=== PATIENT | female | born 1940 | race Caucasian/White ===

== ENCOUNTER 2016-10-05 08:27 | Outpatient (CLI) | payer MEDICARE ==
[2016-10-05 10:12] LABS: ALT (SGPT) 15 U/L (8-55); AST (SGOT) 20 U/L (5-34); Albumin 4.7 g/dL (3.4-4.8); Alkaline Phosphatase 45 U/L (40-150); Anion Gap 15 mmol/L (10-20); BUN (Urea Nitrogen) 15 mg/dL (9.8-20.1); Bilirubin, Total 0.5 mg/dL (0.2-1.2); Calc. Creatinine Clearance 0 mL/min (70-130); Calcium 10.1 mg/dL (7.8-10.44); Carbon Dioxide 26 mmol/L (23-31); Cardiac Risk 3.3 (Less than 4.5); Chloride 99 mmol/L (98-107); Cholesterol 192 mg/dl (< 200 Desired); Estimated GFR-MDRD 79; Globulin 2.7 g/dL (2.4-3.5); Glucose 113 mg/dL (83-110); HDL Cholesterol 58 mg/dL (>60 Neg Risk); LDL Cholesterol, Calculated 103 mg/dL; Potassium 3.9 mmol/L (3.5-5.1); Protein, Total 7.4 g/dL (6.0-8.3); Sodium 136 mmol/L (136-145); Triglycerides 155 mg/dL (Less than 150)
[2016-10-05 10:26] LABS: Free T4 (Free Thyroxine) 1.1 ng/dL (0.70-1.48); Thyroid Stimulating Hormone 2.3425 uIU/mL (0.35-4.94)
[2016-10-05 10:34] LABS: Hemoglobin A1c 6.6 % (4.0-6.0)
[2016-10-05 11:30] LABS: #Basophils 0.1 thou/uL (0.0-0.2); #Eosinphils 0.2 thou/uL (0.0-0.7); #Lymphocytes 2.1 thou/uL (1.20-3.40); #Monocytes 0.6 thou/uL (0.11-0.59); #Neutrophils 3.5 thou/uL (1.40-6.50); %Basophils 1.1 % (0.0-1.0); %Eosinophils 3.6 % (0.0-10.0); %Lymphocytes 32.3 % (21.0-51.0); Hemoglobin 10.7 g/dL (12.0-16.0); Mean Corpuscular Volume 80.6 fl (81.0-99.0); Mean Platelet Volume 6.7 fL (7.4-10.4); PLT Morphology Comment Appears Adequate; Platelet Count 283 thou/uL (130-400); RBC Distribution Width 14.8 % (11.5-14.5); Red Blood Cell (RBC) Count 4.29 mill/uL (4.20-5.40); White Blood Cell (WBC) Count 6.6 thou/uL (4.8-10.8)
[2016-10-05 18:04] LABS: Ferritin 7.09 ng/mL (10-291)
== END 2016-10-05 08:28 ==
LOC: HPCALD 08:27
PROVIDERS: ATTEND Family Medicine
DX: E78.5 Hyperlipidemia, unspecified (principal); E11.9 Type 2 diabetes mellitus without complications; I10 Essential (primary) hypertension; D64.9 Anemia, unspecified; E03.9 Hypothyroidism, unspecified
CPT/HCPCS: 36415; 80053; 80061; 82728; 83036; 84439; 84443; 85025

== ENCOUNTER 2018-04-17 15:45 | Inpatient (IN) | payer MEDICARE ==
--- NOTE | 2018-04-17 17:17 | RAD ---
PELVIS ONE VIEW 04/17/18 A fracture is noted of the right inferior pubic ramus and also a second fracture where the right supe rior pubic ramus meets the body of the pubis. There is slight displacement here. The symphysis does n ot appear tremendously widened. The SI joints are symmetrical. While the bones are mildly osteo penic, what I see of the arcuate lines of the sacrum appear intact. Both hips appear intact. IMPRESSION: Fractures of the superior and inferior right pubic bone. POS: HOME
--- NOTE | 2018-04-17 17:18 | RAD ---
RIGHT HIP TWO VIEWS: 04/17/18 No fracture of the visible portions of the femur or femoral head were seen. One does see fractures of the right superior and inferior pubic rami. There is no dislocation of the hip. The hip joint space is normal in width. IMPRESSION: Right pubic rami fractures. See CT report to follow. POS: HOME
[2018-04-17 17:34] LABS: #Basophils 0.1 thou/uL (0.0-0.2); #Eosinphils 0.2 thou/uL (0.0-0.7); #Lymphocytes 1.9 thou/uL (1.20-3.40); #Monocytes 1.2 thou/uL (0.11-0.59); #Neutrophils 15.8 thou/uL (1.40-6.50); %Basophils 0.7 % (0.0-1.0); %Eosinophils 1.1 % (0.0-10.0); %Lymphocytes 10.1 % (21.0-51.0); %Monocytes 6.1 % (0.0-10.0); Hemoglobin 11.9 g/dL (12.0-16.0); Mean Corpuscular HGB CONC 32.7 g/dL (32.0-36.0); Mean Corpuscular Hemoglobin 26.9 pg (27.0-31.0); Mean Corpuscular Volume 82.1 fL (78.0-98.0); Mean Platelet Volume 6.8 fL (7.4-10.4); Platelet Count 279 thou/uL (130-400); RBC Distribution Width 12.9 % (11.5-14.5); Red Blood Cell (RBC) Count 4.42 mill/uL (4.20-5.40); White Blood Cell (WBC) Count 19.2 thou/uL (4.8-10.8)
--- NOTE | 2018-04-17 17:37 | CT ---
CT OF THE PELVIS WITHOUT CONTRAST 04/17/[address] of the pelvis was done without IV contrast following trauma. Axial slices were acquired, th en coronal and sagittal reconstructions were done. There are relatively undisplaced fractures of the right superior pubic ramus as it meets the body of the pubis and the right inferior pubic ramus. There is thickening of the right obturator internus mus deirdre but no song hematoma or free fluid was seen. In addition, there is a small fracture through the periphery of S2 on the right near the right SI joint. There is a small amount of soft tissue swelling around the fracture site but no gross hematoma of concern. Grade I spondylolisthesis of L5 on S1 is present due to facet changes. There is a degenerated disc at L5-S1. Concentric bulging of L4-L5 is present. IMPRESSION: 1. Fractures of the right superior and inferior pubic rami near the pubic body. Minimal displace ment. Some swelling in the nearby obturator internus but no large pelvic hematoma seen. 2. Small nondisplaced fracture of S2 peripherally near the right SI joint. Minor amounts of soft tissue swelling around it. 3. Hip joints intact with no sign of hip fracture. 4. Spondylolisthesis of L5 on S1 due to facet changes. Findings discussed with Dr. Cazares at 1702 on 04/17/18. POS: HOME
[2018-04-17 17:54] LABS: Anion Gap 20 mmol/L (10-20); BUN (Urea Nitrogen) 15 mg/dL (9.8-20.1); Calc. Creatinine Clearance 0 mL/min (70-130); Calcium 10.7 mg/dL (7.8-10.44); Carbon Dioxide 24 mmol/L (23-31); Chloride 98 mmol/L (98-107); Estimated GFR-MDRD 68; Glucose 164 mg/dL (83-110); Potassium 3.8 mmol/L (3.5-5.1); Sodium 138 mmol/L (136-145)
[2018-04-17 18:05] VITALS: BMI 21.7
[2018-04-17] MEDS ORDERED: HYDROcodone/Acetaminophen 5/325 mg Tablet PO PRN (18:48)
[2018-04-17] MEDS ORDERED: Ondansetron PF 4 MG/2 ML Vial IVP PRN (18:48)
[2018-04-17] MEDS ORDERED: Morphine 4 MG/ML VIAL SLOW IVP PRN (19:12)
[2018-04-17] MEDS: Acetaminophen 325 MG TAB PO PRN (20:55)
[2018-04-18] MEDS: Acetaminophen 325 MG TAB PO PRN ×2 (02:32→07:33)
[2018-04-18] MEDS: Ondansetron ODT 4 MG TAB SL PRN ×2 (08:11→16:46)
[2018-04-18] MEDS ORDERED: Loratadine 10 MG TAB PO PRN (09:28)
[2018-04-18] MEDS: HYDROcodone/Acetaminophen 5/325 mg Tablet PO PRN ×3 (09:32→23:10)
[2018-04-18] MEDS ORDERED: Meclizine HCl 25 MG TAB PO SCH (09:45)
[2018-04-18] MEDS ORDERED: Polyethylene Glycol 3350 17 GM Packet PO SCH ×2 (09:45→21:00)
[2018-04-18] MEDS ORDERED: Metoprolol Tartrate 25 MG TAB PO SCH (09:45)
[2018-04-18] MEDS ORDERED: Fish Oil 1,000 MG CAP PO SCH (09:45)
[2018-04-18] MEDS ORDERED: Hydrochlorothiazide 25 MG TAB PO SCH (09:45)
[2018-04-18] MEDS ORDERED: Aspirin 81 mg Enteric Coated Tablet PO SCH (09:45)
[2018-04-18] MEDS ORDERED: Non-Formulary Item 1 EACH (Fexofenadine Hcl [Allegra Allergy] 180 MG) PO PRN (11:39)
[2018-04-18] MEDS ORDERED: Meclizine HCl 25 MG TAB PO PRN (11:39)
[2018-04-18] MEDS ORDERED: Dextrose 5% in Water 1,000 ML IV PRN (11:41)
[2018-04-18] MEDS ORDERED: Dextrose 50% Abboject 50 ML SYRINGE SLOW IVP PRN (11:41)
[2018-04-18] MEDS ORDERED: Senokot 8.6 MG TAB PO PRN (11:43)
[2018-04-18] MEDS ORDERED: traMADol HCl 50 MG TAB PO PRN (12:04)
[2018-04-18] MEDS ORDERED: Ondansetron PF 4 MG/2 ML Vial SLOW IVP PRN (16:24)
[2018-04-18] MEDS: metFORMIN 500 MG TAB PO SCH (17:34)
[2018-04-18] MEDS: HumaLOG 300 UNITS/3 ML VIAL SC PRN (17:34)
[2018-04-18] MEDS ORDERED: metFORMIN 500 MG TAB PO SCH (21:00)
[2018-04-18] MEDS: Polyethylene Glycol 3350 17 GM Packet PO SCH (21:12)
[2018-04-18] MEDS: Enoxaparin Sodium 30 MG/0.3 ML SYRINGE SC SCH (21:13)
[2018-04-18] MEDS: Docusate 100 MG CAP PO SCH (21:13)
[2018-04-18] MEDS: Atorvastatin Calcium 40 MG TAB PO SCH (21:13)
[2018-04-18] MEDS: Fish Oil 1,000 MG CAP PO SCH (21:13)
[2018-04-18] MEDS: Famotidine 20 MG TAB PO SCH (21:13)
[2018-04-18] MEDS: Ondansetron ODT 4 MG TAB PO PRN (22:50)
[2018-04-19 05:30] LABS: #Basophils 0.1 thou/uL (0.0-0.2); #Eosinphils 0.4 thou/uL (0.0-0.7); #Lymphocytes 2.6 thou/uL (1.20-3.40); #Monocytes 1.1 thou/uL (0.11-0.59); #Neutrophils 7.1 thou/uL (1.40-6.50); %Basophils 0.9 % (0.0-1.0); %Eosinophils 3.5 % (0.0-10.0); %Lymphocytes 22.8 % (21.0-51.0); %Monocytes 10.1 % (0.0-10.0); %Neutrophils 62.8 % (42.0-75.0); Hemoglobin 10.2 g/dL (12.0-16.0); Mean Corpuscular HGB CONC 34.2 g/dL (32.0-36.0); Mean Corpuscular Hemoglobin 27.6 pg (27.0-31.0); Mean Corpuscular Volume 80.5 fL (78.0-98.0); Mean Platelet Volume 7.9 fL (7.4-10.4); Platelet Count 209 thou/uL (130-400); RBC Distribution Width 12.8 % (11.5-14.5); Red Blood Cell (RBC) Count 3.71 mill/uL (4.20-5.40); White Blood Cell (WBC) Count 11.3 thou/uL (4.8-10.8)
[2018-04-19 05:38] LABS: ALT (SGPT) 13 U/L (8-55); AST (SGOT) 18 U/L (5-34); Albumin 3.7 g/dL (3.4-4.8); Alkaline Phosphatase 41 U/L (40-150); Anion Gap 13 mmol/L (10-20); BUN (Urea Nitrogen) 9 mg/dL (9.8-20.1); Bilirubin, Total 0.3 mg/dL (0.2-1.2); Calc. Creatinine Clearance 70 mL/min (70-130); Calcium 9.2 mg/dL (7.8-10.44); Carbon Dioxide 25 mmol/L (23-31); Chloride 96 mmol/L (98-107); Estimated GFR-MDRD Greater than 90; Globulin 2.7 g/dL (2.4-3.5); Glucose 142 mg/dL (83-110); Protein, Total 6.4 g/dL (6.0-8.3); Sodium 130 mmol/L (136-145)
[2018-04-19] MEDS: Levothyroxine Sodium 25 MCG TAB PO SCH (06:00)
[2018-04-19] MEDS: Ondansetron ODT 4 MG TAB PO PRN (06:00)
[2018-04-19] MEDS: HYDROcodone/Acetaminophen 5/325 mg Tablet PO PRN (06:16)
[2018-04-19] MEDS: Polyethylene Glycol 3350 17 GM Packet PO SCH ×2 (08:15→20:23)
[2018-04-19] MEDS: HumaLOG 300 UNITS/3 ML VIAL SC PRN ×3 (08:16→17:21)
[2018-04-19] MEDS: metFORMIN 500 MG TAB PO SCH ×2 (08:20→17:21)
[2018-04-19] MEDS: Meclizine HCl 25 MG TAB PO SCH (08:20)
[2018-04-19] MEDS: Docusate 100 MG CAP PO SCH ×2 (08:20→20:23)
[2018-04-19] MEDS: Aspirin 81 mg Enteric Coated Tablet PO SCH (08:20)
[2018-04-19] MEDS: Famotidine 20 MG TAB PO SCH ×2 (08:21→20:22)
[2018-04-19] MEDS: Hydrochlorothiazide 25 MG TAB PO SCH (08:22)
[2018-04-19] MEDS ORDERED: PHOSPHO PO SCH (09:00)
[2018-04-19] MEDS ORDERED: Levothyroxine Sodium 25 MCG TAB PO SCH (09:00)
[2018-04-19] MEDS ORDERED: [UNRECOGNIZED DRUG - OTHER] PO SCH (09:00)
[2018-04-19] MEDS ORDERED: AST PO SCH (09:00)
[2018-04-19] MEDS ORDERED: KRILL PO SCH (09:00)
[2018-04-19] MEDS ORDERED: DHA PO SCH (09:00)
[2018-04-19] MEDS ORDERED: Non-Formulary Item 1 EACH (Hydrochlorothiazide [Hydrochlorothiazide] 12.5 MG) PO SCH (09:00)
[2018-04-19] MEDS ORDERED: Atorvastatin Calcium 40 MG TAB PO SCH (09:00)
[2018-04-19] MEDS ORDERED: Fish Oil 1,000 MG CAP PO SCH (09:00)
[2018-04-19] MEDS ORDERED: EPA PO SCH (09:00)
[2018-04-19] MEDS ORDERED: Metoprolol Tartrate 100 MG TAB PO SCH (09:00)
[2018-04-19] MEDS ORDERED: Aspirin 81 mg Enteric Coated Tablet PO SCH (09:00)
[2018-04-19] MEDS ORDERED: Metoprolol Tartrate 25 MG TAB PO SCH ×2 (09:00→09:30)
[2018-04-19] MEDS: Ondansetron ODT 4 MG TAB SL PRN ×2 (09:35→15:35)
--- NOTE | 2018-04-19 12:30 | HP ---
DATE OF ADMISSION: 04/18/2018 CHIEF COMPLAINT: Status post fall with pubic ramus fracture and S2 fracture. HISTORY OF PRESENT ILLNESS: A 77-year-old female presented to [facility] Emergency Department yesterday evening status post fall while walking out of [facility]; states the concrete was uneven, she lost her balance and fell towards her right side. She was unable to arise and had noted pain to the area of fall and was brought to the emergency department. Imaging revealed the patient to have right superior and inferior pubic rami fractures along with a nondisplaced fracture of S2. The patient typically lives alone and thus due to her inability to ambulate she was admitted so that she may have both further pain control in addition to working with physical therapy and occupational therapy to enable her to not only ambulate, but perform ADLs in her home setting. The patient reports her pain to be fairly stable at this time with no significant side effects of pain medication received. She has not yet had a bowel movement , but otherwise reports her intake and output to be at baseline. She has good insight into her reason for admission. PAST MEDICAL HISTORY: Gastroesophageal reflux disease, hypothyroidism, hyperlipidemia, asthma, arthritis, hypertension, type 2 diabetes mellitus. PAST SURGICAL HISTORY: Hysterectomy in 1980. Aortic valve replacement in 2014. SOCIAL HISTORY: The patient is a nonsmoker with no ETOH or illicit drug use. She lives at home by herself. ALLERGIES: Include FLUOROQUINOLONES, NSAIDs, NEURONTIN, SULFA, CODEINE, LISINOPRIL, LOSARTAN, TESSALON PERLES, and EGGS. FAMILY HISTORY: Noncontributory. CURRENT MEDICATIONS: Include aspirin 81 mg p.o. daily, metformin 500 mg p.o. b.i.d., levothyroxine 25 mcg p.o. daily, meclizine 25 mg daily as needed, metoprolol tartrate 100 mg p.o. daily, hydrochlorothiazide 12.5 mg p.o. daily, atorvastatin 40 mg p.o. at bedtime, Natasha 180 mg p.o. daily p.r.n. REVIEW OF SYSTEMS: General: The patient denies fever, chills or diaphoresis. Ear, Nose, and Throat: Denies sore throat, nasal drainage or congestion. Cardiovascular: Denies chest pain or palpitations. Respiratory: Denies shortness of breath or cough. Gastrointestinal: Denies abdominal pain, nausea , vomiting, diarrhea or constipation. Genitourinary: Denies dysuria. Musculoskeletal: Complaints of low back and right hip pain. Dermatologic: Denies rash. Neurologic: Denies headache. LABORATORY DATA: White blood cell count 19.2, H and H is 11.9 and 36.3. Chemistry: Sodium 138, potassium 3.8, BUN is 15, creatinine 0.81 with a GFR of 68, glucose 164. IMAGING: On 04/17/2018, pelvis x-ray shows fractures of the superior and inferior right pubic bone. On 04/17/2018, hip x-ray shows right pubic rami fractures. On 04/17/2018, pelvis CT shows fractures of the right superior and inferior pubic rami near the pubic body, minimal displacement, some swelling near obturator internus but no large pelvic hematoma seen. Small nondisplaced fracture of S2 peripherally near the right SI joint with minor amounts of soft tissue swelling around it. Hip joints intact with no sign of hip fracture, spondylolisthesis of L5 on S1 due to facet changes. PHYSICAL EXAMINATION: VITAL SIGNS: Temperature is 97.5, pulse is 80, respiratory rate is 18, oxygen is 98% on room air, blood pressure 175/79. GENERAL: The patient is alert and oriented, in no acute distress. EYES: Conjunctivae are clear. Sclerae are clear. Pupils equal, round, reactive to light. Extraocular muscles are intact bilaterally. HEENT: Within normal limits. NECK: Supple, with full range of motion. No lymphadenopathy. CARDIOVASCULAR: Regular rate and rhythm, normal S1, S2, 2/6 systolic murmur. RESPIRATORY: Clear to auscultation bilaterally with no wheezes, rales or rhonchi. ABDOMEN: Soft, nontender to palpation. EXTREMITIES: No clubbing, cyanosis or edema. MUSCULOSKELETAL: Osteoarthritic changes to the DIP joints of bilateral hands, crepitus to the knees, generalized weakness with inability to raise the right lower extremity in the supine position. NEUROLOGICAL: Exam is nonfocal with cranial nerves II-XII grossly intact. ASSESSMENT AND PLAN: 1. Right superior and inferior pubic rami fracture. We will provide the patient physical therapy and occupational therapy in order to improve mobilization, so that she may perform ADLs and return home. 2. Nondisplaced S2 fracture. We will provide the patient pain control medications along with p.r.n. constipation meds due to potential side effects. 3. Gait instability. The patient is currently immobile. We will work on this with PT and OT. 4. Hypertension. The patient is hemodynamically stable. We will resume her home blood pressure medications. 5. Type 2 diabetes mellitus. We will resume patient's home metformin and add a Humalog sliding scale. 6. Dyslipidemia. We will resume the patient's home statin. 7. Hypothyroidism. We will resume patient's levothyroxine. 8. Leukocytosis, likely reactive due to stress. We will repeat the patient's CBC tomorrow morning. 9. Prophylaxis. We will provide famotidine for gastrointestinal prophylaxis and Lovenox for deep venous thrombosis prophylaxis. DISPOSITION: Goal will be for the patient to return home once cleared by PT and OT. CODE STATUS: FULL. MTDD
[2018-04-19] MEDS: Fish Oil 1,000 MG CAP PO SCH (20:22)
[2018-04-19] MEDS: Enoxaparin Sodium 30 MG/0.3 ML SYRINGE SC SCH (20:22)
[2018-04-19] MEDS: Atorvastatin Calcium 40 MG TAB PO SCH (20:23)
[2018-04-19] MEDS: Metoprolol Tartrate 25 MG TAB PO SCH (20:24)
[2018-04-20] MEDS: Levothyroxine Sodium 25 MCG TAB PO SCH (05:38)
[2018-04-20] MEDS: Polyethylene Glycol 3350 17 GM Packet PO SCH ×2 (08:35→20:23)
[2018-04-20] MEDS: metFORMIN 500 MG TAB PO SCH ×2 (08:36→16:44)
[2018-04-20] MEDS: Docusate 100 MG CAP PO SCH ×2 (08:36→20:22)
[2018-04-20] MEDS: Metoprolol Tartrate 25 MG TAB PO SCH ×2 (08:37→20:24)
[2018-04-20] MEDS: Meclizine HCl 25 MG TAB PO SCH (08:37)
[2018-04-20] MEDS: Hydrochlorothiazide 25 MG TAB PO SCH (08:38)
[2018-04-20] MEDS: Famotidine 20 MG TAB PO SCH ×2 (08:38→20:25)
[2018-04-20] MEDS: Aspirin 81 mg Enteric Coated Tablet PO SCH (08:38)
[2018-04-20] MEDS: Acetaminophen 325 MG TAB PO PRN ×3 (13:56→23:58)
[2018-04-20] MEDS: HumaLOG 300 UNITS/3 ML VIAL SC PRN (16:44)
[2018-04-20] MEDS: Enoxaparin Sodium 30 MG/0.3 ML SYRINGE SC SCH (20:22)
[2018-04-20] MEDS: Fish Oil 1,000 MG CAP PO SCH (20:22)
[2018-04-20] MEDS: Atorvastatin Calcium 40 MG TAB PO SCH (20:23)
[2018-04-21] MEDS: Levothyroxine Sodium 25 MCG TAB PO SCH (05:24)
[2018-04-21 05:30] LABS: Hemoglobin 10.7 g/dL (12.0-16.0); Platelet Count 255 thou/uL (130-400)
[2018-04-21 06:09] VITALS: BP 128/67; TEMP 97.8
[2018-04-21] MEDS: metFORMIN 500 MG TAB PO SCH (08:57)
[2018-04-21] MEDS: Polyethylene Glycol 3350 17 GM Packet PO SCH (08:57)
[2018-04-21] MEDS: Metoprolol Tartrate 25 MG TAB PO SCH (08:57)
[2018-04-21] MEDS: Meclizine HCl 25 MG TAB PO SCH (08:58)
[2018-04-21] MEDS: Hydrochlorothiazide 25 MG TAB PO SCH (08:58)
[2018-04-21] MEDS: Aspirin 81 mg Enteric Coated Tablet PO SCH (08:58)
[2018-04-21] MEDS: Docusate 100 MG CAP PO SCH (08:59)
[2018-04-21] MEDS: Famotidine 20 MG TAB PO SCH (09:52)
[2018-04-21] MEDS: Acetaminophen 325 MG TAB PO PRN (09:52)
--- NOTE | 2018-04-21 20:46 | DIS ---
DATE OF ADMISSION: 04/18/2018 DATE OF DISCHARGE FROM INPATIENT ACUTE TO SWING BED STATUS: 04/21/2018 ADMISSION DIAGNOSES: Status post fall with right superior and inferior pubic rami fractures, nondisplaced S2 fracture, gait instability, leukocytosis. SECONDARY DIAGNOSES: Hypertension, type 2 diabetes mellitus, dyslipidemia, and hypothyroidism. PROCEDURES: 04/17/2018, pelvis x-ray showed fractures of the superior and inferior right pubic bone. 04/17/2018, hip x-ray showed right pubic rami fractures. CT report to follow. 04/17/2018, pelvis CT showed fractures of the right superior and inferior pubic rami near the pubic body minimal displacement , some swelling in the nearby obturator internus but no large pelvic hematoma seen. Small nondisplaced fracture of S2 peripherally near the right SI joint. Minor amount of soft tissue swelling around it. Hip joints intact with no sign of hip fracture, spondylolisthesis at L5 on S1 due to facet changes. HOSPITAL COURSE: A 77-year-old female presented to [facility] Emergency Department, status post fall at [facility] in [place]. She was unable to get up and ambulate after her fall and thus was brought to the emergency department where subsequent imaging revealed the patient to have superior and inferior pubic rami fractures along with a nondisplaced fracture of S2. The patient lives alone and due to her inability to ambulate, was admitted for pain control and to work with Physical Therapy and Occupational Therapy to improve her mobility. Initial labs showed leukocytosis which is felt to be from stress reaction as follow up CBC showed near normalization of wbc count and she displays no infectious etiology. The patient's pain has been well controlled during her stay thus far with no noted side effects. She has been able to work with Physical Therapy and Occupational Therapy thus far; however, does need further improvement prior to being able to return home and perform home ADLs. At this time, we will transition the patient from acute inpatient status to swing bed status for further resumption of care in regard to physical therapy and occupational therapy and pain management. DISPOSITION: The patient will be discharged from acute inpatient status to swing bed status. We will plan to discharge the patient back home when she is cleared by Physical Therapy and Occupational Therapy with plans for further PT, OT via home health versus outpatient which is to be determined. DISCHARGE MEDICATIONS: Include acetaminophen 650 mg p.o. q.4 hours p.r.n., aspirin 81 mg p.o. daily, atorvastatin 40 mg p.o. at bedtime, docusate 100 mg p.o. b.i.d., Lovenox 30 mg subcutaneously once daily, famotidine 20 mg p.o. b.i.d., fish oil 1000 mg p.o. daily, Humalog sliding scale, hydrochlorothiazide 12.5 mg p.o. daily, hydrocodone 5/325 p.o. q.6 hours p.r.n., levothyroxine 25 mcg p.o. daily, Claritin 10 mg p.o. daily p.r.n., meclizine 25 mg p.o. daily p.r.n., metformin 500 mg p.o. b.i.d., metoprolol tartrate 50 mg p.o. b.i.d., Zofran 4 mg sublingual q.6 hours p.r.n., MiraLax 17 g p.o. b.i.d., Senokot 1 tab p.o. p.r.n. daily, tramadol 50 mg p.o. q.6 hours p.r.n. MTDD
== END 2018-04-21 10:56 | disposition swing bed (61) | DRG 560 ==
LOC: BURERS 15:45 → BURMED 17:12
PROVIDERS: ADMIT Family Medicine; ATTEND Family Medicine
DX: S32.591D Other specified fracture of right pubis, subsequent encounter for fracture with routine healing (principal); E87.1 Hypo-osmolality and hyponatremia; S32.1 Fracture of sacrum; R26.9 Unspecified abnormalities of gait and mobility; D72.829 Elevated white blood cell count, unspecified; I10 Essential (primary) hypertension; E11.9 Type 2 diabetes mellitus without complications; E78.5 Hyperlipidemia, unspecified; E03.9 Hypothyroidism, unspecified; M43.17 Spondylolisthesis, lumbosacral region; F43.9 Reaction to severe stress, unspecified; K21.9 Gastro-esophageal reflux disease without esophagitis; J45.909 Unspecified asthma, uncomplicated; Z95.2 Presence of prosthetic heart valve; M19.042 Primary osteoarthritis, left hand; M19.041 Primary osteoarthritis, right hand
CPT/HCPCS: 36415; 36416; 72170; 72192; 80048; 80053; 82565; 85014; 85018; 85025; 85049; G8978-GP-CK; G8979-GP-CI; G8987-GO-CK; G8988-GO-CI; J1650; Q0162

== ENCOUNTER 2018-04-21 10:56 | Inpatient (IN) | payer MEDICARE ==
[2018-04-21] MEDS ORDERED: Dextrose 5% in Water 1,000 ML IV PRN (12:10)
[2018-04-21] MEDS ORDERED: Dextrose 50% Abboject 50 ML SYRINGE IVP PRN (12:10)
[2018-04-21] MEDS ORDERED: HYDROcodone/Acetaminophen 5/325 mg Tablet PO PRN (12:11)
[2018-04-21] MEDS ORDERED: Loratadine 10 MG TAB PO PRN (12:12)
[2018-04-21] MEDS ORDERED: Ondansetron ODT 4 MG TAB PO PRN (12:13)
[2018-04-21] MEDS ORDERED: Senokot 8.6 MG TAB PO PRN (12:13)
[2018-04-21] MEDS ORDERED: Meclizine HCl 25 MG TAB PO PRN (12:18)
[2018-04-21 12:33] VITALS: BMI 21.9
[2018-04-21] MEDS: HumaLOG 300 UNITS/3 ML VIAL SC PRN (17:34)
[2018-04-21] MEDS: metFORMIN 500 MG TAB PO SCH (17:35)
[2018-04-21] MEDS: Famotidine 20 MG TAB PO SCH (21:15)
[2018-04-21] MEDS: Acetaminophen 325 MG TAB PO PRN (21:15)
[2018-04-21] MEDS: Atorvastatin Calcium 40 MG TAB PO SCH (21:15)
[2018-04-21] MEDS: Fish Oil 1,000 MG CAP PO SCH (21:16)
[2018-04-21] MEDS: Enoxaparin Sodium 30 MG/0.3 ML SYRINGE SC SCH (21:16)
[2018-04-21] MEDS: Polyethylene Glycol 3350 17 GM Packet PO SCH (21:20)
[2018-04-21] MEDS: Docusate 100 MG CAP PO SCH (21:22)
[2018-04-22] MEDS: Acetaminophen 325 MG TAB PO PRN ×3 (06:04→15:41)
[2018-04-22] MEDS ORDERED: Levothyroxine Sodium 25 MCG TAB PO SCH (07:15)
[2018-04-22] MEDS: metFORMIN 500 MG TAB PO SCH ×2 (08:04→17:42)
[2018-04-22] MEDS: Hydrochlorothiazide 25 MG TAB PO SCH (08:04)
[2018-04-22] MEDS: Polyethylene Glycol 3350 17 GM Packet PO SCH ×2 (08:05→20:26)
[2018-04-22] MEDS: Famotidine 20 MG TAB PO SCH ×2 (08:05→20:29)
[2018-04-22] MEDS: Aspirin 81 mg Enteric Coated Tablet PO SCH (08:05)
[2018-04-22] MEDS: Docusate 100 MG CAP PO SCH ×2 (08:05→20:29)
[2018-04-22] MEDS ORDERED: Meclizine HCl 25 MG TAB PO SCH (09:00)
[2018-04-22 11:54] LABS: #Basophils 0.1 thou/uL (0.0-0.2); #Eosinphils 0.1 thou/uL (0.0-0.7); #Lymphocytes 1.7 thou/uL (1.20-3.40); #Monocytes 0.9 thou/uL (0.11-0.59); #Neutrophils 7.3 thou/uL (1.40-6.50); %Basophils 1.1 % (0.0-1.0); %Eosinophils 0.9 % (0.0-10.0); %Lymphocytes 16.5 % (21.0-51.0); %Monocytes 9.2 % (0.0-10.0); %Neutrophils 72.3 % (42.0-75.0); Hemoglobin 10.2 g/dL (12.0-16.0); Mean Corpuscular HGB CONC 33.8 g/dL (32.0-36.0); Mean Corpuscular Hemoglobin 26.9 pg (27.0-31.0); Mean Corpuscular Volume 79.8 fL (78.0-98.0); Mean Platelet Volume 6.9 fL (7.4-10.4); Platelet Count 293 thou/uL (130-400); RBC Distribution Width 12.6 % (11.5-14.5)
[2018-04-22 12:14] LABS: ALT (SGPT) 17 U/L (8-55); AST (SGOT) 21 U/L (5-34); Albumin 4.1 g/dL (3.4-4.8); Alkaline Phosphatase 51 U/L (40-150); Anion Gap 18 mmol/L (10-20); BUN (Urea Nitrogen) 10 mg/dL (9.8-20.1); Bilirubin, Total 0.7 mg/dL (0.2-1.2); Calc. Creatinine Clearance 61 mL/min (70-130); Calcium 10.4 mg/dL (7.8-10.44); Chloride 87 mmol/L (98-107); Estimated GFR-MDRD 80; Globulin 3.1 g/dL (2.4-3.5); Glucose 125 mg/dL (83-110); Potassium 4.2 mmol/L (3.5-5.1); Protein, Total 7.2 g/dL (6.0-8.3); Sodium 126 mmol/L (136-145)
[2018-04-22 12:47] LABS: Carbon Dioxide 25 mmol/L (23-31)
[2018-04-22] MEDS: Sodium Chloride 0.9% 1,000 ML IV SCH (13:28)
[2018-04-22] MEDS: HumaLOG 300 UNITS/3 ML VIAL SC PRN (17:42)
[2018-04-22] MEDS: Enoxaparin Sodium 30 MG/0.3 ML SYRINGE SC SCH (20:27)
[2018-04-22] MEDS: Fish Oil 1,000 MG CAP PO SCH (20:30)
[2018-04-22] MEDS: Atorvastatin Calcium 40 MG TAB PO SCH (20:30)
[2018-04-23] MEDS: Acetaminophen 325 MG TAB PO PRN ×4 (01:01→22:53)
[2018-04-23] MEDS: traMADol HCl 50 MG TAB PO PRN ×2 (01:47→10:09)
[2018-04-23 05:16] LABS: Hemoglobin 9.5 g/dL (12.0-16.0); Platelet Count 283 thou/uL (130-400)
[2018-04-23 05:26] LABS: Anion Gap 12 mmol/L (10-20); BUN (Urea Nitrogen) 9 mg/dL (9.8-20.1); Calc. Creatinine Clearance 72 mL/min (70-130); Calcium 9.9 mg/dL (7.8-10.44); Carbon Dioxide 27 mmol/L (23-31); Chloride 96 mmol/L (98-107); Estimated GFR-MDRD Greater than 90; Glucose 122 mg/dL (83-110); Sodium 131 mmol/L (136-145)
[2018-04-23] MEDS: Levothyroxine Sodium 25 MCG TAB PO SCH (05:39)
[2018-04-23] MEDS: Docusate 100 MG CAP PO SCH ×2 (08:10→20:26)
[2018-04-23] MEDS: metFORMIN 500 MG TAB PO SCH ×2 (08:11→17:48)
[2018-04-23] MEDS: Sodium Chloride 0.9% 1,000 ML IV SCH (08:11)
[2018-04-23] MEDS: Polyethylene Glycol 3350 17 GM Packet PO SCH ×2 (08:11→20:26)
[2018-04-23] MEDS: Aspirin 81 mg Enteric Coated Tablet PO SCH (08:11)
[2018-04-23] MEDS: Hydrochlorothiazide 25 MG TAB PO SCH (08:11)
[2018-04-23] MEDS: Famotidine 20 MG TAB PO SCH ×2 (08:11→20:25)
[2018-04-23] MEDS ORDERED: Sodium Chloride 0.9% 10 ML ONE (12:34)
[2018-04-23] MEDS: HumaLOG 300 UNITS/3 ML VIAL SC PRN (17:48)
[2018-04-23] MEDS: Fish Oil 1,000 MG CAP PO SCH (20:25)
[2018-04-23] MEDS: Enoxaparin Sodium 30 MG/0.3 ML SYRINGE SC SCH (20:26)
[2018-04-23] MEDS: Atorvastatin Calcium 40 MG TAB PO SCH (20:26)
[2018-04-24] MEDS: Acetaminophen 325 MG TAB PO PRN ×3 (05:26→20:33)
[2018-04-24] MEDS: Levothyroxine Sodium 25 MCG TAB PO SCH (05:26)
[2018-04-24 05:29] LABS: Anion Gap 14 mmol/L (10-20); BUN (Urea Nitrogen) 7 mg/dL (9.8-20.1); Calc. Creatinine Clearance 73 mL/min (70-130); Calcium 10.1 mg/dL (7.8-10.44); Carbon Dioxide 27 mmol/L (23-31); Chloride 97 mmol/L (98-107); Estimated GFR-MDRD Greater than 90; Glucose 111 mg/dL (83-110); Potassium 4.4 mmol/L (3.5-5.1); Sodium 134 mmol/L (136-145)
[2018-04-24] MEDS: Docusate 100 MG CAP PO SCH ×2 (08:48→20:32)
[2018-04-24] MEDS: Famotidine 20 MG TAB PO SCH ×2 (08:48→20:32)
[2018-04-24] MEDS: Aspirin 81 mg Enteric Coated Tablet PO SCH (08:48)
[2018-04-24] MEDS: Hydrochlorothiazide 25 MG TAB PO SCH (08:49)
[2018-04-24] MEDS: metFORMIN 500 MG TAB PO SCH ×2 (08:50→18:20)
[2018-04-24] MEDS: Polyethylene Glycol 3350 17 GM Packet PO SCH ×2 (08:55→20:31)
[2018-04-24 09:51] LABS: Bilirubin Negative (Negative); Blood, Urine Negative (Negative); Clarity Clear (Clear); Glucose, Urine (Dipstick) 100 mg/dL (Negative); Leukocyte Negative (Negative); Nitrite Negative (Negative); Protein, Urine (Dipstick) Negative (Neg-Trace); Specific Gravity, Urine 1.005 (1.005-1.030); Urobilinogen 0.2 mg/dL (0.2-1.0)
[2018-04-24 11:35] LABS: Bacteria/HPF Rare-Few HPF (None Seen); RBC/HPF None Seen HPF (0-3); Squamous Epithelial 0-3 HPF (0-3); WBC/HPF 0-3 HPF (0-3)
[2018-04-24] MEDS: Enoxaparin Sodium 30 MG/0.3 ML SYRINGE SC SCH (20:33)
[2018-04-24] MEDS: Atorvastatin Calcium 40 MG TAB PO SCH (20:33)
[2018-04-24] MEDS: Fish Oil 1,000 MG CAP PO SCH (20:33)
[2018-04-25 04:56] LABS: Hemoglobin 9.1 g/dL (12.0-16.0); Platelet Count 332 thou/uL (130-400)
[2018-04-25 05:17] LABS: Calc. Creatinine Clearance 73 mL/min (70-130); Estimated GFR-MDRD Greater than 90
[2018-04-25] MEDS: Acetaminophen 325 MG TAB PO PRN ×3 (05:25→13:58)
[2018-04-25] MEDS: Levothyroxine Sodium 25 MCG TAB PO SCH (05:26)
[2018-04-25] MEDS: metFORMIN 500 MG TAB PO SCH ×2 (08:38→17:13)
[2018-04-25] MEDS: Hydrochlorothiazide 25 MG TAB PO SCH (08:38)
[2018-04-25] MEDS: Famotidine 20 MG TAB PO SCH ×2 (08:39→20:27)
[2018-04-25] MEDS: Docusate 100 MG CAP PO SCH ×2 (08:40→20:27)
[2018-04-25] MEDS: Aspirin 81 mg Enteric Coated Tablet PO SCH (08:40)
[2018-04-25] MEDS: Polyethylene Glycol 3350 17 GM Packet PO SCH ×2 (08:41→20:27)
[2018-04-25] MEDS: Fish Oil 1,000 MG CAP PO SCH (20:27)
[2018-04-25] MEDS: Atorvastatin Calcium 40 MG TAB PO SCH (20:27)
[2018-04-25] MEDS: Enoxaparin Sodium 30 MG/0.3 ML SYRINGE SC SCH (20:27)
[2018-04-26] MEDS: Acetaminophen 325 MG TAB PO PRN ×3 (02:52→20:35)
[2018-04-26] MEDS: Levothyroxine Sodium 25 MCG TAB PO SCH (06:04)
[2018-04-26] MEDS: Hydrochlorothiazide 25 MG TAB PO SCH (09:55)
[2018-04-26] MEDS: Famotidine 20 MG TAB PO SCH ×2 (09:55→20:35)
[2018-04-26] MEDS: metFORMIN 500 MG TAB PO SCH ×2 (09:55→17:31)
[2018-04-26] MEDS: Aspirin 81 mg Enteric Coated Tablet PO SCH (09:56)
[2018-04-26] MEDS: Docusate 100 MG CAP PO SCH ×2 (09:56→20:35)
[2018-04-26] MEDS: Polyethylene Glycol 3350 17 GM Packet PO SCH ×2 (09:57→20:35)
[2018-04-26] MEDS: Enoxaparin Sodium 30 MG/0.3 ML SYRINGE SC SCH (20:35)
[2018-04-26] MEDS: Atorvastatin Calcium 40 MG TAB PO SCH (20:35)
[2018-04-26] MEDS: Fish Oil 1,000 MG CAP PO SCH (20:35)
[2018-04-27 05:31] LABS: Hemoglobin 9.5 g/dL (12.0-16.0); Platelet Count 408 thou/uL (130-400)
[2018-04-27 05:41] LABS: Calc. Creatinine Clearance 68 mL/min (70-130); Estimated GFR-MDRD Greater than 90
[2018-04-27] MEDS: Levothyroxine Sodium 25 MCG TAB PO SCH (06:05)
[2018-04-27] MEDS: Acetaminophen 325 MG TAB PO PRN ×3 (06:59→20:22)
[2018-04-27] MEDS ORDERED: Famotidine 20 MG TAB ONE (08:14)
[2018-04-27] MEDS: Polyethylene Glycol 3350 17 GM Packet PO SCH ×2 (08:32→20:23)
[2018-04-27] MEDS: Hydrochlorothiazide 25 MG TAB PO SCH (08:32)
[2018-04-27] MEDS: Famotidine 20 MG TAB PO SCH ×2 (08:33→20:21)
[2018-04-27] MEDS: Aspirin 81 mg Enteric Coated Tablet PO SCH (08:33)
[2018-04-27] MEDS: metFORMIN 500 MG TAB PO SCH ×2 (08:33→18:23)
[2018-04-27] MEDS: Docusate 100 MG CAP PO SCH ×2 (08:33→20:21)
[2018-04-27] MEDS: Fish Oil 1,000 MG CAP PO SCH (20:21)
[2018-04-27] MEDS: Atorvastatin Calcium 40 MG TAB PO SCH (20:21)
[2018-04-27] MEDS: Enoxaparin Sodium 30 MG/0.3 ML SYRINGE SC SCH (20:22)
[2018-04-28] MEDS: Acetaminophen 325 MG TAB PO PRN ×4 (04:21→20:54)
[2018-04-28] MEDS: Levothyroxine Sodium 25 MCG TAB PO SCH (05:59)
[2018-04-28] MEDS: Aspirin 81 mg Enteric Coated Tablet PO SCH (08:25)
[2018-04-28] MEDS: Famotidine 20 MG TAB PO SCH ×2 (08:25→20:54)
[2018-04-28] MEDS: Hydrochlorothiazide 25 MG TAB PO SCH (08:25)
[2018-04-28] MEDS: metFORMIN 500 MG TAB PO SCH ×2 (08:26→18:21)
[2018-04-28] MEDS: Polyethylene Glycol 3350 17 GM Packet PO SCH ×2 (08:26→20:26)
[2018-04-28] MEDS: Docusate 100 MG CAP PO SCH ×2 (08:26→20:25)
[2018-04-28] MEDS: Atorvastatin Calcium 40 MG TAB PO SCH (20:54)
[2018-04-28] MEDS: Fish Oil 1,000 MG CAP PO SCH (20:54)
[2018-04-28] MEDS: Enoxaparin Sodium 30 MG/0.3 ML SYRINGE SC SCH (20:54)
[2018-04-29] MEDS: Acetaminophen 325 MG TAB PO PRN ×2 (01:43→08:56)
[2018-04-29 05:04] LABS: Hemoglobin 9.2 g/dL (12.0-16.0); Platelet Count 427 thou/uL (130-400)
[2018-04-29 05:10] LABS: Calc. Creatinine Clearance 70 mL/min (70-130); Estimated GFR-MDRD Greater than 90
[2018-04-29] MEDS: Levothyroxine Sodium 25 MCG TAB PO SCH (06:05)
[2018-04-29 06:09] VITALS: BP 158/70; TEMP 97.8
[2018-04-29] MEDS: metFORMIN 500 MG TAB PO SCH (08:55)
[2018-04-29] MEDS: Hydrochlorothiazide 25 MG TAB PO SCH (08:56)
[2018-04-29] MEDS: Famotidine 20 MG TAB PO SCH (08:56)
[2018-04-29] MEDS: Aspirin 81 mg Enteric Coated Tablet PO SCH (08:56)
[2018-04-29] MEDS: Docusate 100 MG CAP PO SCH (09:01)
[2018-04-29] MEDS: Polyethylene Glycol 3350 17 GM Packet PO SCH (09:01)
--- NOTE | 2018-04-30 06:37 | DIS ---
DATE OF ADMISSION: 04/21/2018 DATE OF DISCHARGE: 04/29/2018 ADMISSION DIAGNOSES: 1. Status post fall with right superior and inferior pubic rami fractures, nondisplaced S2 fracture. 2. Gait instability. SECONDARY DIAGNOSES: 1. Leukocytosis and hyponatremia, both now resolved. 2. Hypertension. 3. Type 2 diabetes mellitus. 4. Dyslipidemia. 5. Hypothyroidism. PROCEDURES: 1. On 04/17/2018, pelvic x-ray showed fractures of the superior and inferior right pubic bone. 2. On 04/17/2018, hip x-ray showed right pubic rami fractures with CT report to follow. 3. On 04/17/2018, pelvic CT showed fractures of the right superior and inferior pubic rami near the pubic body, minimal displacement, some swelling in the nearby obturator internus, but no large pelvic hematoma seen. Small nondisplaced fracture at S2 peripherally near the right SI joint. Minor amount of soft tissue swelling around the hip joint intact with no sign of hip fractures. Spondylolisthesis at L5 on S1 due to facet changes. HOSPITAL COURSE: A 77-year-old female presented to [facility] Emergency Department status post fall and was subsequently unable to get up. Imaging revealed as above. The patient lives alone and was not able to live at her home setting as she could not ambulate or perform ADLs. She was able to work with Physical Therapy and Occupational Therapy and improved her mobility with assistance of a walker. She has had a script written for a rollator to continue use of this at home. Initial labs did show leukocytosis, which was felt to be secondary to stress reaction as her CBC quickly normalized. During her stay, she did become hyponatremic with some signs of altered mental status. She was provided normal saline intravenous fluid, which corrected this issue and her mental status quickly returned back to baseline. The patient has met the goals set forth by Physical Therapy and Occupational Therapy and is appropriate to discharge to her home setting at this time. Her daughter will be staying with her for the next month to help see this through and she will continue her physical therapy and occupational therapy at [facility]. Of note, the patient's blood pressure was elevated during her stay, for which metoprolol was added. DISPOSITION: The patient was discharged to her home setting, where her daughter will stay with her. She may follow up with myself in the clinic in 1 week and she will resume PT and OT via [facility]. DISCHARGE MEDICATIONS: Include; 1. Tylenol 650 mg p.o. q.4 hours p.r.n. 2. Aspirin 81 mg p.o. daily. 3. Atorvastatin 40 mg p.o. at bedside. 4. Docusate 100 mg p.o. b.i.d. 5. Famotidine 20 mg p.o. b.i.d. 6. Fish oil 1000 mg p.o. daily. 7. Hydrochlorothiazide 12.5 mg p.o. daily. 8. Levothyroxine 25 mcg p.o. daily. 9. Claritin 10 mg p.o. daily as needed. 10. Metformin 500 mg p.o. b.i.d. 11. Metoprolol tartrate 50 mg p.o. b.i.d. 12. Tramadol 50 mg p.o. q.6 hours p.r.n. Job ID: [id number] MTDD
== END 2018-04-29 12:54 | disposition home or self-care (01) | DRG 560 ==
LOC: BURMED 10:56
PROVIDERS: ADMIT Family Medicine; ATTEND Family Medicine
DX: S32.591D Other specified fracture of right pubis, subsequent encounter for fracture with routine healing (principal); E87.1 Hypo-osmolality and hyponatremia; S32.1 Fracture of sacrum; K21.9 Gastro-esophageal reflux disease without esophagitis; I10 Essential (primary) hypertension; E11.9 Type 2 diabetes mellitus without complications; E03.9 Hypothyroidism, unspecified; E78.5 Hyperlipidemia, unspecified; Z95.2 Presence of prosthetic heart valve; M19.90 Unspecified osteoarthritis, unspecified site; Z79.84 Long term (current) use of oral hypoglycemic drugs; Z79.82 Long term (current) use of aspirin; W01.0XXD Fall on same level from slipping, tripping and stumbling without subsequent striking against object, subsequent encounter; R30.0 Dysuria; R26.9 Unspecified abnormalities of gait and mobility; D72.829 Elevated white blood cell count, unspecified
CPT/HCPCS: 36415; 36416; 80048; 80053; 81001; 82565; 82607; 85014; 85018; 85025; 85049; 87086; G8978-GP-CK; G8979-GP-CI; G8987-GO-CK; G8988-GO-CI; J1650; Q0162

== ENCOUNTER 2019-07-03 08:48 | Outpatient (CLI) | payer MEDICARE ==
--- NOTE | 2019-07-03 21:29 | RAD ---
ABDOMEN ONE VIEW: 07/03/19 There is a mild increase in the amount of fecal material in the colon, but there is no distended loop s of bowel to suggest obstruction. Various calcifications are seen in the abdomen which are mostly v ascular. None are of great concern. There are no acute bony changes. IMPRESSION: Mild constipation. POS: HOME
== END 2019-07-03 08:49 | disposition home or self-care (01) ==
LOC: BURRAD 08:48
PROVIDERS: ATTEND Family Medicine
DX: R10.9 Unspecified abdominal pain (principal); K59.00 Constipation, unspecified
CPT/HCPCS: 74018

== ENCOUNTER 2020-10-07 08:42 | Inpatient (IN) | payer MEDICARE ==
[2020-10-07] MEDS ORDERED: Milk Of Magnesia 30 ML UDCUP PO PRN (12:25)
[2020-10-07] MEDS ORDERED: Acetaminophen 325 MG TAB PO PRN ×2 (12:25)
[2020-10-07] MEDS ORDERED: Ondansetron ODT 4 MG TAB PO PRN (12:25)
[2020-10-07] MEDS ORDERED: Loratadine 10 MG TAB PO PRN (12:54)
[2020-10-07] MEDS ORDERED: Cepastat Lozenges 1 LOZ PO PRN (12:57)
[2020-10-07] MEDS: Dicyclomine 20 MG TAB PO SCH ×2 (15:06→21:20)
[2020-10-07] MEDS: traMADol HCl 50 MG TAB PO PRN (15:32)
[2020-10-07] MEDS: metFORMIN 500 MG TAB PO SCH (16:53)
[2020-10-07 20:19] LABS: SARS-CoV-2 NAA Rapid Test Not Detected (NotDetected)
[2020-10-07] MEDS: Polyethylene Glycol 3350 17 GM Packet PO PRN (21:18)
[2020-10-07] MEDS: Atorvastatin Calcium 40 MG TAB PO SCH (21:20)
[2020-10-07] MEDS: Aspirin 81 mg Enteric Coated Tablet PO SCH (21:20)
[2020-10-08] MEDS: traMADol HCl 50 MG TAB PO PRN ×2 (04:23→08:09)
[2020-10-08] MEDS: Levothyroxine Sodium 25 MCG TAB PO SCH (06:05)
[2020-10-08] MEDS: Metoprolol Tartrate 25 MG TAB PO SCH (07:54)
[2020-10-08] MEDS: Dicyclomine 20 MG TAB PO SCH ×3 (07:56→20:22)
[2020-10-08] MEDS: metFORMIN 500 MG TAB PO SCH ×2 (07:56→17:02)
[2020-10-08] MEDS: Aspirin 81 mg Enteric Coated Tablet PO SCH ×2 (07:56→20:22)
[2020-10-08] MEDS: Amlodipine 10 MG TAB PO SCH (08:00)
[2020-10-08] MEDS ORDERED: DHA PO SCH (09:00)
[2020-10-08] MEDS ORDERED: [UNRECOGNIZED DRUG - OTHER] PO SCH (09:00)
[2020-10-08] MEDS ORDERED: EPA PO SCH (09:00)
[2020-10-08] MEDS ORDERED: AST PO SCH (09:00)
[2020-10-08] MEDS ORDERED: KRILL PO SCH (09:00)
[2020-10-08] MEDS ORDERED: PHOSPHO PO SCH (09:00)
[2020-10-08] MEDS: Atorvastatin Calcium 40 MG TAB PO SCH (20:22)
[2020-10-09] MEDS: Levothyroxine Sodium 25 MCG TAB PO SCH (05:40)
[2020-10-09] MEDS: Aspirin 81 mg Enteric Coated Tablet PO SCH ×2 (08:24→20:45)
[2020-10-09] MEDS: Dicyclomine 20 MG TAB PO SCH ×3 (08:24→21:35)
[2020-10-09] MEDS: Metoprolol Tartrate 25 MG TAB PO SCH (08:24)
[2020-10-09] MEDS: metFORMIN 500 MG TAB PO SCH ×2 (08:24→17:17)
[2020-10-09] MEDS: Amlodipine 10 MG TAB PO SCH (08:24)
[2020-10-09] MEDS: traMADol HCl 50 MG TAB PO PRN ×2 (08:54→20:46)
[2020-10-09] MEDS: Polyethylene Glycol 3350 17 GM Packet PO PRN (13:35)
[2020-10-09] MEDS: Atorvastatin Calcium 40 MG TAB PO SCH (20:45)
[2020-10-10] MEDS: traMADol HCl 50 MG TAB PO PRN (04:39)
[2020-10-10] MEDS: Levothyroxine Sodium 25 MCG TAB PO SCH (05:59)
[2020-10-10] MEDS: Dicyclomine 20 MG TAB PO SCH ×3 (09:32→20:43)
[2020-10-10] MEDS: Amlodipine 10 MG TAB PO SCH (09:32)
[2020-10-10] MEDS: Aspirin 81 mg Enteric Coated Tablet PO SCH ×2 (09:33→20:43)
[2020-10-10] MEDS: Metoprolol Tartrate 25 MG TAB PO SCH (09:33)
[2020-10-10] MEDS: metFORMIN 500 MG TAB PO SCH ×2 (09:33→17:45)
[2020-10-10] MEDS: Polyethylene Glycol 3350 17 GM Packet PO PRN (14:55)
[2020-10-10] MEDS: Atorvastatin Calcium 40 MG TAB PO SCH (20:43)
[2020-10-11] MEDS: traMADol HCl 50 MG TAB PO PRN ×2 (03:47→21:05)
[2020-10-11 04:27] VITALS: BMI 19.6
[2020-10-11] MEDS: Levothyroxine Sodium 25 MCG TAB PO SCH (05:47)
[2020-10-11] MEDS ORDERED: Dicyclomine 20 MG TAB PO PRN (07:07)
[2020-10-11] MEDS ORDERED: cloNIDine 0.1 MG TAB PO PRN (07:22)
[2020-10-11] MEDS: Amlodipine 10 MG TAB PO SCH (08:48)
[2020-10-11] MEDS: metFORMIN 500 MG TAB PO SCH ×2 (08:48→17:55)
[2020-10-11] MEDS: Aspirin 81 mg Enteric Coated Tablet PO SCH ×2 (08:49→21:05)
[2020-10-11] MEDS: Metoprolol Tartrate 25 MG TAB PO SCH (08:49)
[2020-10-11] MEDS: Atorvastatin Calcium 40 MG TAB PO SCH (21:06)
[2020-10-12] MEDS: Levothyroxine Sodium 25 MCG TAB PO SCH (05:40)
[2020-10-12 06:46] VITALS: BP 136/66; TEMP 97.4
[2020-10-12] MEDS: Metoprolol Tartrate 25 MG TAB PO SCH (09:05)
[2020-10-12] MEDS: Amlodipine 10 MG TAB PO SCH (09:05)
[2020-10-12] MEDS: metFORMIN 500 MG TAB PO SCH (09:05)
[2020-10-12] MEDS: Aspirin 81 mg Enteric Coated Tablet PO SCH (09:06)
[2020-10-12] MEDS: traMADol HCl 50 MG TAB PO PRN (09:53)
== END 2020-10-12 11:46 | disposition home or self-care (01) | DRG 93 ==
LOC: BURMED 10:05
PROVIDERS: ADMIT Family Medicine; ATTEND Family Medicine
DX: R26.89 Other abnormalities of gait and mobility (principal); Z47.1 Aftercare following joint replacement surgery; E03.9 Hypothyroidism, unspecified; I10 Essential (primary) hypertension; E11.9 Type 2 diabetes mellitus without complications; E78.5 Hyperlipidemia, unspecified; Z79.84 Long term (current) use of oral hypoglycemic drugs; K21.9 Gastro-esophageal reflux disease without esophagitis; Z79.82 Long term (current) use of aspirin
CPT/HCPCS: 0240U

== ENCOUNTER 2021-07-22 10:53 | Outpatient (CLI) | payer MEDICARE | END 2021-07-22 10:54 | disposition home or self-care (01) | LOC: BURRAD 10:53 | PROVIDERS: ATTEND Family Medicine | DX: M25.552 Pain in left hip (principal); M16.12 Unilateral primary osteoarthritis, left hip; M47.816 Spondylosis without myelopathy or radiculopathy, lumbar region; M47.818 Spondylosis without myelopathy or radiculopathy, sacral and sacrococcygeal region; Z87.81 Personal history of (healed) traumatic fracture ==

== ENCOUNTER 2021-11-10 10:33 | Outpatient (CLI) | payer MEDICARE | END 2021-11-10 10:34 | disposition home or self-care (01) | LOC: BURRAD 10:33 | PROVIDERS: ATTEND Family Medicine | DX: K59.00 Constipation, unspecified (principal) | CPT/HCPCS: 74019 ==